=== PATIENT | male | born 1940 | race Caucasian/White ===

== ENCOUNTER → 2017-07-26 | Day surgery (SDC) | payer MEDICARE, OTHER ==
--- NOTE | 2017-07-25 04:48 | HP ---
SHORT STAY HISTORY AND PHYSICAL DATE OF ADMISSION: 07/26/2017 HISTORY OF PRESENT ILLNESS: This is a 77-year-old male who comes in for a colonoscopy for colon [facility] er screening. The patient had a colonoscopy with polypectomy at the [facility] in [place], this was done about two years ago. He was advised by the resident in diagnostic radiology to have a repeat colonoscopy in 2 years. At the present time, his bowel sounds are normal. No rectal bleeding. The patient comes in for a colonoscopy because of the history of colon polyp. ALLERGIES: None. SOCIAL HISTORY: He is a former smoker. He does not drink alcohol. MEDICAL ILLNESSES: 1. Hypertension. 2. Hyperlipidemia. 3. Sleep apnea. 4. BPH. 5. Chronic acid reflux-Donaldson's mucosa. 6. Coronary artery bypass graft in 2016. 7. Depression. 8. Allergic rhinitis. 9. 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 10. Colon polyp. PHYSICAL EXAMINATION: VITAL SIGNS: Pulse is 70, blood pressure 130/80. HEENT: Conjunctivae clear. CARDIOVASCULAR: First and second heart sounds normal. LUNGS: Clear to auscultation. ABDOMEN: Soft to palpate. No organomegaly. No tenderness. No masses. ADMITTING DIAGNOSIS: Colon polyp. PLAN: Repeat colonoscopy.
[2017-07-25 09:52] VITALS: BMI 30.9
[~2017-07-26] MED LIST: Lidocaine 1% PF 5 ML VIAL ONE; PROPOFOL 200 MG/20 ML VIAL ONE
--- NOTE | 2017-07-26 16:17 | OP ---
DATE OF PROCEDURE: 07/26/2017 OPERATIVE PROCEDURE: Colonoscopy. PREOPERATIVE DIAGNOSIS: A 77-year-old male with history of colon polyp. The previous colo noscopy was done in the [facility] in [place]. The patient comes for a colonoscopy because of histor y of colon polyp. POSTOPERATIVE DIAGNOSES: 1. Sigmoid diverticular disease. 2. Retained stool intermittently in the colon. From the review especially the left colon was diffic ult to visualize some areas. PROCEDURE IN DETAIL: The patient was placed on his left lateral position and was given sedation by [facility]. A rectal exam was done before the scope was advanced into the rectum. No lesi ons felt on rectal exam. A [employer] video colonoscope was introduced into the rectum and advanced all the way into the cecum. The prep is fair. The patient had retained stool intermittently in the colo n. Some areas are difficult to visualize in fact he has some solid stool . The underlying muco sa appeared normal. The ileocecal area, cecum, no pathology seen. The ascending colon, hepatic flex ure, no pathology seen. The transverse colon, splenic flexure, descending colon, no pathology seen. He had scattered sigmoid diverticular disease. Rectum showed no pathology. DISCHARGE PLANNING: A 77-year-old male referred for a colonoscopy because history of colon polyp. He underwent colonoscopy and was found to have sigmoid diverticula. There is no other patho logy. DISCHARGE RECOMMENDATIONS: 1. High-fiber diet. 2. The patient advised to call me with abdominal pain and hematochezia. 3. To come back to clinic in 2 weeks.
== END ==
LOC: SDC 06:27
PROVIDERS: ATTEND Internal Medicine Gastroenterology
PROC: 0DJD8ZZ Inspection of Lower Intestinal Tract, Via Natural or Artificial Opening Endoscopic (ICD-10-PCS; principal; 2017-07-26)
DX: Z12.11 Encounter for screening for malignant neoplasm of colon (principal); K57.30 Diverticulosis of large intestine without perforation or abscess without bleeding; I10 Essential (primary) hypertension; E78.5 Hyperlipidemia, unspecified; G47.30 Sleep apnea, unspecified; N40.0 Benign prostatic hyperplasia without lower urinary tract symptoms; K22.70 Barrett's esophagus without dysplasia; K21.9 Gastro-esophageal reflux disease without esophagitis; F32.9 Major depressive disorder, single episode, unspecified; J30.9 Allergic rhinitis, unspecified; I25.10 Atherosclerotic heart disease of native coronary artery without angina pectoris; Z86.010 Personal history of colon polyps; Z79.82 Long term (current) use of aspirin; Z79.899 Other long term (current) drug therapy
CPT/HCPCS: J2001; J2704

== ENCOUNTER 2021-09-14 09:49 | Emergency (ER) | payer OTHER, MEDICARE | END 2021-09-14 11:34 | disposition home or self-care (01) | LOC: ERS 09:49 | DX: S43.402A Unspecified sprain of left shoulder joint, initial encounter (principal); K21.9 Gastro-esophageal reflux disease without esophagitis; E78.5 Hyperlipidemia, unspecified; E78.00 Pure hypercholesterolemia, unspecified; Z79.899 Other long term (current) drug therapy; W01.0XXA Fall on same level from slipping, tripping and stumbling without subsequent striking against object, initial encounter ==

== ENCOUNTER 2024-01-19 20:38 | Emergency (ER) | payer MEDICARE, OTHER | END 2024-01-19 23:26 | disposition home or self-care (01) | LOC: ERS 20:38 | DX: S50.312A Abrasion of left elbow, initial encounter (principal); W19.XXXA Unspecified fall, initial encounter | CPT/HCPCS: 99283 ==